=== PATIENT | female | born 1985 | race Caucasian/White ===

== ENCOUNTER 2018-10-11 08:01 | Outpatient (CLI) | payer OTHER, SELFPAY ==
[2018-10-11 09:21] LABS: ALT 37 U/L (12-78); AST 25 U/L (15-37); Albumin 3.7 g/dL (3.4-5.0); Alkaline Phosphatase 71 U/L (46-116); Anion Gap 7.9 mmol/L (3-11); BUN 12 mg/dL (7-18); Bilirubin, Total 0.5 mg/dL (0.2-1.0); CO2 27.1 mmol/L (21.0-32.0); CREATININE 0.58 mg/dL (0.55-1.02); Calcium 8.6 mg/dL (8.5-10.1); Calculated LDL 122 mg/dL; Chloride 106 mmol/L (98-107); Cholesterol 195 mg/dL (50-200); Glucose 87 mg/dL (70-100); HDL Cholesterol 66 mg/dL (40-60); Potassium 4.2 mmol/L (3.5-5.1); Sodium 141 mmol/L (136-145); Total Protein 6.9 g/dL (6.4-8.2); Triglyceride 37 mg/dL (30-150)
== END 2018-10-11 08:21 ==
LOC: NCHCN 08:02 → NCHCO 08:03
PROVIDERS: PCP Nurse Practitioner; Visit Provider Family Medicine
DX: Z00.00 Encounter for general adult medical examination without abnormal findings (principal); Z13.220 Encounter for screening for lipoid disorders; Z13.228 Encounter for screening for other metabolic disorders
CPT/HCPCS: 36415; 80053; 80061; 83721

== ENCOUNTER 2023-04-23 02:44 | Outpatient (CLI) | payer BC, SELFPAY ==
[2023-04-23 08:44] LABS: ALT 15 U/L (14-59); AST 15 U/L (15-37); Albumin 4.2 g/dL (3.4-5.0); Alkaline Phosphatase 59 U/L (46-116); Anion Gap 9.5 mmol/L (3-11); BUN 10 mg/dL (7-18); Bilirubin, Total 0.5 mg/dL (0.2-1.0); CO2 27.5 mmol/L (21.0-32.0); CREATININE 0.7 mg/dL (0.55-1.02); Calcium 9.3 mg/dL (8.5-10.1); Calculated LDL 144 mg/dL (<100); Chloride 105 mmol/L (98-107); Cholesterol 211 mg/dL (<200); Estimated GFR 112.75 (mL/min/1.73m2); Glucose 98 mg/dL (74-106); HDL Cholesterol 59 mg/dL (40-60); Potassium 3.9 mmol/L (3.5-5.1); Sodium 142 mmol/L (136-145); Total Protein 7.7 g/dL (6.4-8.2); Triglyceride 40 mg/dL (<150)
[2023-04-23 09:40] LABS: Vitamin D 25 Total 23.7 ng/mL (30-100)
== END 2023-04-23 02:45 | disposition home or self-care (01) ==
LOC: LBO 02:45
PROVIDERS: Visit Provider Family Medicine
DX: Z00.00 Encounter for general adult medical examination without abnormal findings (principal)
CPT/HCPCS: 36415; 80053; 80061; 82306

== ENCOUNTER 2023-05-24 10:11 | Outpatient (REF) | payer BC, SELFPAY ==
[2023-05-24 15:46] LABS: FREE T4 0.87 ng/dL (0.76-1.46); TSH 1.91 uIU/Ml (0.36-3.74)
[2023-05-24 21:34] LABS: T3,Free 3.8 pg/mL (2.8-5.3)
[2023-05-24 22:43] LABS: Thyroperoxidase Antibody 33 U/mL (<=60)
== END 2023-05-24 10:12 | disposition home or self-care (01) ==
LOC: NCHCN 10:11
PROVIDERS: Visit Provider Family Medicine
DX: E04.9 Nontoxic goiter, unspecified (principal)
CPT/HCPCS: 84439; 84443; 84481; 86376

== ENCOUNTER 2023-11-03 18:09 | Outpatient (REF) | payer BC, SELFPAY | END 2023-11-03 18:10 | disposition home or self-care (01) | LOC: NCHCN 18:09 | PROVIDERS: PCP Family Medicine; Visit Provider Family Medicine | DX: R30.0 Dysuria (principal) | CPT/HCPCS: 87086 ==

== ENCOUNTER 2023-11-18 02:51 | Outpatient (CLI) | payer BC, SELFPAY ==
[2023-11-18 07:48] LABS: Calculated LDL 110 mg/dL (<100); Cholesterol 178 mg/dL (<200); HDL Cholesterol 61 mg/dL (40-60); TSH 0.91 uIU/Ml (0.36-3.74); Triglyceride 38 mg/dL (<150)
== END 2023-11-18 02:52 | disposition home or self-care (01) ==
LOC: LBO 02:51
PROVIDERS: PCP Family Medicine; Visit Provider Family Medicine
DX: E78.5 Hyperlipidemia, unspecified (principal); E04.9 Nontoxic goiter, unspecified
CPT/HCPCS: 36415; 80061; 84439; 84443